=== PATIENT | female | born 1955 | race Caucasian/White ===

== ENCOUNTER 2021-04-04 08:33 | Observation (INO) ==
[2021-04-04 09:46] LABS: Basophils # 0.1 K/mcL (0.0-0.2); Eosinophils # 0.5 K/mcL (0.0-0.6); Eosinophils % 6.7 %; Hematocrit 35.2 % (35.3-44.9); Hemoglobin 11.1 g/dL (11.5-15.4); Immature Granulocytes % 0.1 % (0-4); Lymphocytes # 2.8 K/mcL (0.6-4.6); Lymphocytes % 35.8 %; Mean Corpuscular HGB Conc 31.5 g/dL (31.6-35.5); Mean Corpuscular Hemoglobin 28.9 pg (28.0-33.3); Mean Corpuscular Volume 91.7 fL (83.0-100.0); Monocytes # 0.8 K/mcL (0.0-1.3); Monocytes % 9.9 %; Neutrophils # 3.6 K/mcL (1.6-8.9); Platelet Count 328 K/mcL (140-400); Red Blood Count 3.84 M/mcL (3.82-4.97); Red Cell Distribution Width 13.6 % (11.5-14.5); Segmented Neutrophils % 46.5 %; White Blood Count 7.7 K/mcL (4.3-11.1)
[2021-04-04 10:10] LABS: BUN/Creatinine Ratio 11 (6-26); Blood Urea Nitrogen 10 mg/dL (8-23); Calcium 9.2 mg/dL (8.6-10.3); Carbon Dioxide 25 mEq/L (23-29); Chloride 106 mEq/L (98-107); Glucose 89 mg/dL (70-105); Osmolality,Calculated 287 (280-300); Sodium 139 mEq/L (136-145); Troponin I < 0.03 ng/mL (< 0.04); eGFR For African Americans > 60 (> 60); eGFR For Non-African Americans > 60 (> 60)
[2021-04-04] MEDS ORDERED: Isovue-370 500 ML BOTTLE IVP ONE (10:33)
[2021-04-04] MEDS ORDERED: Naloxone 0.4 MG/ML INJ IVP PRN (12:19)
[2021-04-04] MEDS ORDERED: (Rizatriptan Benzoate [Maxalt] 10 MG Tablet) PO PRN (12:39)
[2021-04-04] MEDS ORDERED: Ondansetron ODT 4 MG TAB.RAPDIS SL PRN (12:40)
[2021-04-04] MEDS: Aspirin Enteric Coated 81 MG Tablet PO SCH (14:25)
[2021-04-04] MEDS ORDERED: Aspirin Enteric Coated 81 MG Tablet PO ONE (14:29)
[2021-04-04] MEDS ORDERED: Perflutren Lipid Microsphere 1.3 ML in 0.9 % Sodium Chloride 8.7 ML IVP PRN (14:38)
[2021-04-04] MEDS ORDERED: *HR* Enoxaparin 40 MG/0.4 ML SYRINGE SQ SCH (18:00)
[2021-04-04] MEDS: (Cyclosporine [Restasis] 1 EACH Droperette) OP SCH (21:15)
[2021-04-05 02:21] LABS: Prothrombin Time 11.6 Seconds (9.4-12.1)
[2021-04-05 02:34] LABS: Chol/HDL Ratio 1.8 (0-4.9)
[2021-04-05 02:53] LABS: Chol/HDL Ratio 1.8 (0-4.9)
[2021-04-05 03:08] LABS: Estimated Average Glucose 105 mg/dl; Hemoglobin A1C 5.3 %
[2021-04-05 03:16] LABS: Folate 15.3 ng/mL (3.0-16.0)
[2021-04-05] MEDS ORDERED: Regadenoson 0.4 MG/5 ML SYRINGE IVP ONE (06:02)
[2021-04-05] MEDS ORDERED: Cyanocobalamin (B-12) 1,000 MCG TABLET PO SCH (09:00)
[2021-04-05] MEDS: (Cyclosporine [Restasis] 1 EACH Droperette) OP SCH (10:04)
[2021-04-05] MEDS: Aspirin Enteric Coated 81 MG Tablet PO SCH (10:21)
[2021-04-05 11:11] VITALS: BP 112/74
[2021-04-05] MEDS ORDERED: *HR* Enoxaparin 40 MG/0.4 ML SYRINGE SQ SCH (12:00)
== END 2021-04-05 15:50 | disposition home or self-care (01) ==
LOC: EMEROOARM 08:33 → 2ANU 08:33 → SUATTDRO 13:20 → 2ANU 13:59
PROVIDERS: ADMIT Internal Medicine; ATTEND Internal Medicine